=== PATIENT | female | born 1985 | race Two or more races ===

== ENCOUNTER 2020-06-09 15:45 | Emergency (ER) | payer OTHER, SELFPAY ==
[~2020-06-09] VITALS: Ht 162.6 cm; Wt 86.7 kg
[2020-06-09] MEDS ORDERED: LIDOCAINE-MPF 1%, 5ML INFIL ONE (16:30)
--- NOTE | 2020-06-09 17:34 | NUR ---
RIGHT POINTER FINGER SWELLING REDNESS STARTING FRIDAY. REDDNESS TO R. WRIST FROM FINGER. PT ATTACHED TO MONITORS. VSS. I&D TO BE DONE AT BEDSIDE BY YARELY GASCA.
[2020-06-09] MEDS ORDERED: LIDOCAINE-MPF 1%, 5ML ONE (17:36)
[2020-06-09 18:56] VITALS: BP 132/89
--- NOTE | 2020-06-09 18:57 | NUR ---
PT AWAITING I&D. VSS. DODD. THIS RN SPOKE WITH ELO BRITT REGARDING I&D. PER LORENZA SHE WILL SEE PT NEXT.
--- NOTE | 2020-06-09 19:53 | NUR ---
Patient given discharge instructions and they have confirmed that they understand the instructions. Patient ambulatory with steady gait.
== END 2020-06-09 19:54 | disposition home or self-care (01) ==
LOC: ED 17:43
DX: L03.011 Cellulitis of right finger (principal)
CPT/HCPCS: 10060